=== PATIENT | female | born 1995 | race American Indian/Alaskan Native ===

== ENCOUNTER 2017-04-07 13:34 | Outpatient (CLI) | payer OTHER ==
[2017-04-07 13:54] VITALS: BP 118/56
[2017-04-07] MEDS ORDERED: LACTATED RINGERS 500 ML IV ONE (14:00)
--- NOTE | 2017-04-07 15:47 | Ultrasound Report ---
OB sonogram: History: Possible abruption. Findings: Single fetus with cephalic presentation. Placenta is anterior and grade 1. heart rate 138 per minute. Average gestational age 24 weeks and 3 days. There is fluid pocket identified within the placenta measuring 3 x 3.3 x 2.1 cm. This may be a cyst or placental roberson. Less likely placental hematoma. No evidence of placental abruption. Impression: Findings as detailed above.
== END 2017-04-07 16:20 | disposition home or self-care (01) ==
LOC: TRG 13:34
PROVIDERS: ATTEND Obstetrics & Gynecology
DX: O47.02 False labor before 37 completed weeks of gestation, second trimester (principal); Z3A.24 24 weeks gestation of pregnancy
CPT/HCPCS: 59025; 76815

== ENCOUNTER 2017-04-30 18:52 | Outpatient (CLI) | payer OTHER ==
[2017-04-30 20:07] VITALS: BP 107/65
[2017-04-30] MEDS ORDERED: LACTATED RINGERS 500 ML IV ONE (20:13)
== END 2017-04-30 21:30 | disposition home or self-care (01) ==
LOC: TRG 18:52
PROVIDERS: ATTEND Obstetrics & Gynecology
DX: O47.03 False labor before 37 completed weeks of gestation, third trimester (principal); Z3A.28 28 weeks gestation of pregnancy
CPT/HCPCS: 59025; 96360; J7120

== ENCOUNTER 2017-07-24 16:12 | Inpatient (IN) | payer MEDICAID, OTHER ==
--- NOTE | 2017-07-24 20:07 | Ultrasound Report ---
FINAL REPORT PROCEDURE: US OB LIMITED TECHNIQUE: Real-time limited sonographic examination was performed for evaluation of position and amniotic fluid index for each fetus with image documentation (1 or more fetuses). CPT 23143 HISTORY: JAKY COMPARISON: No prior studies are available for comparison. FINDINGS: Single living intrauterine gestation visualized currently in the vertex presentation. heart rate of 141 beats per minute is detected. Subjectively the amount of amniotic fluid appears decreased. The amniotic fluid index is decreased only measuring 5.9 centimeters. Further evaluation was neither requested nor performed. IMPRESSION: There is a single living intrauterine gestation currently vertex presentation. Both subjectively and by amniotic fluid index there is evidence of oligohydramnios.
[2017-07-24] MEDS ORDERED: STADOL IV PRN (23:36)
[2017-07-24] MEDS ORDERED: ePHEDrine SULFATE IV PRN (23:36)
[2017-07-24] MEDS ORDERED: BRETHINE SUB-Q PRN (23:36)
[2017-07-24] MEDS ORDERED: BRETHINE IVP PRN (23:36)
[2017-07-24] MEDS ORDERED: XYLOCAINE 2% INFILTRATI ONE (23:36)
[2017-07-24] MEDS ORDERED: MINERAL OIL PO PRN (23:36)
[2017-07-24] MEDS ORDERED: PITOCin/NS 20 UNIT/1000ML DRIP 20 UNITS/1,000 ML BAG IV SCH (23:45)
[2017-07-24] MEDS ORDERED: PITOCin/NS 30 UNIT/500ML 30 UNITS/500 ML BAG IV SCH (23:45)
[2017-07-24] MEDS ORDERED: LACTATED RINGERS 1,000 ML IV SCH (23:45)
[2017-07-24 23:53] LABS: Hematocrit 29.8 % (30.3-42.9); Mean Corpuscular HGB Conc 33 % (30-34); Mean Corpuscular Hemoglobin 30 pg (28-32); Mean Corpuscular Volume 89 fl (79-97); Platelet Count 174 K/mm3 (140-440); Red Blood Count 3.36 M/mm3 (3.65-5.03); Red Cell Distribution Width 14.3 % (13.2-15.2)
--- NOTE | 2017-07-25 03:31 | History and Physical Report ---
History of Present Illness Date of examination: 07/25/17 Date of admission: 07/24/17 23:52 Chief complaint: low fluid History of present illness: 22y/o @ 40+0 weeks with findings of an JAKY of 5cm. The patient complains of irregular contractions. The patient initiated care @ 16 weeks ega. course complicated by anemia. She denies vaginal bleeding. Past History Past Medical History: asthma Past Surgical History: tonsillectomy Social history: single - Obstetrical History Expected Date of Delivery: 07/25/17 Actual Gestation: 40 Week(s) 0 Day(s) : 2 Para: 1 Hx # Term Pregnancies: 1 Number of Pregnancies: 0 Spontaneous Abortions: 0 Induced : 0 Number of Living Children: 1 Medications and Allergies Allergies Allergy/AdvReac Type Severity Reaction Status Date / Time No Known Allergies Allergy Verified 06/12/15 18:25 Home Medications Medication Instructions Recorded Confirmed Last Taken Type No Known Home Medications [No 04/18/15 07/24/17 Unknown History Reported Home Medications] Active Meds: Active Medications Butorphanol Tartrate (Stadol) 2 mg IV Q2H PRN PRN Reason: Pain , Severe (7-10) Ephedrine Sulfate (Ephedrine Sulfate) 10 mg IV Q2M PRN PRN Reason: Hypotension Lactated Ringer's (Lactated Ringers) 1,000 mls @ 125 mls/hr IV DIRECT ROSALINA Oxytocin/Sodium Chloride (Pitocin/Ns 20 Unit/1000ml Drip) 20 units in 1,000 mls @ 125 mls/hr IV DIRECT ROSALINA Oxytocin/Sodium Chloride (Pitocin/Ns 30 Unit/500ml) 30 units in 500 mls @ 4 mls /hr IV TITR ROSALINA; 4 MILLIUNITS/MIN PRN Reason: Protocol Mineral Oil (Mineral Oil) 30 ml PO QHS PRN PRN Reason: Constipation Terbutaline Sulfate (Brethine) 0.25 mg SUB-Q ONCE PRN PRN Reason: Hyperstimulation/Hypertonicity Terbutaline Sulfate (Brethine) 0.25 mg IVP ONCE PRN PRN Reason: Hyperstimulation/Hypertonicity Review of Systems All systems: negative Genitourinary: contractions, no vaginal bleeding - Vital Signs Vital signs: Vital Signs Pulse Pulse Ox 100 H 99 07/24/17 23:41 07/24/17 23:41 Temp Pulse Resp BP Pulse Ox 97.8 F 127 H 18 108/54 97 07/25/17 00:52 07/25/17 03:26 07/25/17 00:52 07/25/17 03:26 07/25/17 00:06 - Physical Exam Breasts: Positive: deferred Cardiovascular: Regular rate Lungs: Positive: Clear to auscultation Abdomen: Positive: normal appearance Results Result Diagrams: 07/24/17 23:30 Abnormal lab results 07/24/17 Range/Units 23:30 RBC 3.36 L (3.65-5.03) M/mm3 Hgb 10.0 L (10.1-14.3) gm/dl Hct 29.8 L (30.3-42.9) % All other labs normal. Assessment and Plan - Patient Problems (1) Active labor at term Current Visit: Yes Status: Acute Plan to address problem: admit to L&D for augmentation of labor (2) Oligohydramnios Current Visit: Yes Status: Acute
[2017-07-25] MEDS ORDERED: XYLOCAINE 2% INFILTRATI ONE (06:25)
--- NOTE | 2017-07-25 06:38 | Procedure Note ---
OB Delivery Note - Delivery Date of Delivery: 07/25/17 Surgeon: JENNY ROQUE Estimated blood loss: 200cc - Vaginal Delivery presentation: vertex Delivery position: OA Delivery augmentation: pitocin Delivery monitor: external FHT Route of delivery: Delivery placenta: spontaneous Delivery cord: 3 umbilical vessels Episiotomy: none Delivery laceration: 2nd degree Delivery repair: vicryl Anesthesia: local Delivery comments: Patient pushed to deliver a liveborn male with apgars of 9/9 and weight of 7lbs 10oz. After delivery of the head, the shoulders delivered in transverse position. The infant was delivered in the bed. The mouth and nose were bulb suctioned. The cord was clamped and cut and infant was placed on the warmer. The placenta delivered spontaneously intact with a 3VC. The patient sustained a midline 2nd degree laceration that was injected with lidocaine and repaired with 2-0 vicryl. EBL 200ml. - A at 1 minute: 9 at 5 minutes: 9 Infant Gender: Male (weight 7lbs 10oz)
[2017-07-25] MEDS ORDERED: TUCKS PAD TP PRN (06:39)
[2017-07-25] MEDS ORDERED: PHENERGAN PO PRN (06:39)
[2017-07-25] MEDS ORDERED: MILK OF MAGNESIA PO PRN (06:39)
[2017-07-25] MEDS ORDERED: LANSINOH TP PRN (06:39)
[2017-07-25] MEDS ORDERED: DULCOLAX PR PRN (06:39)
[2017-07-25] MEDS ORDERED: ZOFRAN IV PRN (06:39)
[2017-07-25] MEDS ORDERED: BENADRYL PO PRN (06:39)
[2017-07-25] MEDS ORDERED: PHENERGAN PR PRN (06:39)
[2017-07-25] MEDS ORDERED: TYLENOL PO PRN (06:39)
[2017-07-25] MEDS ORDERED: SODIUM CHLORIDE FLUSH SYRINGE 10 ML IV NR (07:00)
[2017-07-25] MEDS: NORCO 5/325 PO PRN (09:48)
[2017-07-25] MEDS: MOTRIN PO SCH ×3 (11:43→17:46)
[2017-07-25 18:32] LABS: Hematocrit 27.7 % (30.3-42.9)
[2017-07-26] MEDS: MOTRIN PO SCH ×2 (00:27→12:55)
[2017-07-26] MEDS: NORCO 5/325 PO PRN (00:28)
--- NOTE | 2017-07-26 09:46 | Progress Note ---
Assessment and Plan - Patient Problems (1) Active labor at term Current Visit: Yes Status: Acute Plan to address problem: Doing well Discharge home (2) Oligohydramnios Current Visit: Yes Status: Acute Subjective - Subjective Date of service: 07/26/17 Interval history: Patient is currently without complaints. Her pain is well-controlled. She desires Depo-Provera for contraception. Patient reports: appetite normal, voiding normally, pain well controlled : doing well Objective - Vital Signs Latest vital signs: Vital Signs Temp Pulse Resp BP BP Pulse Ox 07/26/17 04:30 98.6 F 66 16 111/69 07/26/17 00:00 98.6 F 71 16 114/76 07/25/17 16:03 97.9 F 80 16 104/44 98 07/25/17 09:48 18 Intake and Output 07/25/17 07/26/17 07/26/17 22:59 06:59 14:59 Intake Total 900 300 Balance 900 300 Intake: Oral 600 Intake, Free Water 300 300 Other: Total, Intake Amount 600 # Voids Void 3 # Bowel Movements 0 - Exam Uterus: Present: normal, firm - Labs Labs: Abnormal lab results 07/25/17 Range/Units 18:20 Hgb 9.0 L (10.1-14.3) gm/dl Hct 27.7 L (30.3-42.9) %
--- NOTE | 2017-07-26 09:48 | Discharge Summary ---
Providers - Providers Date of Admission: 07/24/17 23:52 Date of discharge: 07/26/17 Attending physician: JENNY ROQUE Primary care physician: ANGELO HELLER Hospitalization Reason for admission: other (oligohydramnios) Delivery: complications: none Discharge diagnosis: IUP at term delivered baby: male Hospital course: The patient presented to triage with irregular contractions. She complained of occasional leakage of fluid. Ultrasound was performed that demonstrated an JAKY of 5 cm. The patient was admitted for Pitocin augmentation. She had a successful vaginal delivery. course was uncomplicated. Condition at discharge: Good Disposition: DC-01 TO HOME OR SELFCARE - Discharge Diagnoses (1) Active labor at term Status: Acute (2) Oligohydramnios Status: Acute Plan - Discharge Medications Prescriptions: Ferrous Sulfate [Feosol 325 MG tab] 325 mg PO BID #60 tablet HYDROcodone/APAP 5-325 [[place] 5/325] 1 each PO Q6HR PRN #30 tablet PRN Reason: Pain Ibuprofen [Motrin] 800 mg PO Q8HR PRN #60 tablet PRN Reason: Pain - Provider Discharge Summary Activity: no sex for 6 weeks, no heavy lifting 4 weeks, no strenuous exercise Diet: routine Instructions: routine Additional instructions: [] Smoking cessation referral if applicable(refer to patient education folder for contact #) [] Refer to [facility] Booklet Call your doctor immediately for: * Fever > 100.5 * Heavy vaginal bleeding ( >1 pad per hour) * Severe persistent headache * Shortness of breath * Reddened, hot, painful area to leg or breast * Follow-up in 4 weeks for visit - Follow up plan
[2017-07-26] MEDS ORDERED: DEPO-PROVERA (CONTRACEPTION) IM ONE (11:00)
[2017-07-26 17:01] VITALS: BP 106/62
== END 2017-07-26 18:30 | disposition home or self-care (01) | DRG 775 ==
LOC: TRG 16:12 → LD 23:52 → OBSVTOIN 23:52 → OB 07-25 08:20
PROVIDERS: ADMIT Obstetrics & Gynecology; ATTEND Obstetrics & Gynecology
PROC: 10E0XZZ Delivery of Products of Conception, External Approach (ICD-10-PCS; principal; 2017-07-25)
PROC: 0KQM0ZZ Repair Perineum Muscle, Open Approach (ICD-10-PCS; 2017-07-25)
PROC: 3E033VJ Introduction of Other Hormone into Peripheral Vein, Percutaneous Approach (ICD-10-PCS; 2017-07-25)
DX: O41.03X0 Oligohydramnios, third trimester, not applicable or unspecified (principal); O99.52 Diseases of the respiratory system complicating childbirth; J45.909 Unspecified asthma, uncomplicated; O99.02 Anemia complicating childbirth; O70.1 Second degree perineal laceration during delivery; D64.9 Anemia, unspecified; Z3A.40 40 weeks gestation of pregnancy; Z37.0 Single live birth
CPT/HCPCS: 36415; 59025; 76815; 85014; 85018; 85027; 86850; 86900; 86901; J1050; J2590; J7120